=== PATIENT | male | born 1940 | race Caucasian/White ===

== ENCOUNTER 2018-08-26 13:14 | Inpatient (IN) | payer OTHER ==
[~2018-08-26] VITALS: Ht 185.4 cm; Wt 74.8 kg
[~2018-08-26 13:14] MED LIST: ACETAMINOPHEN650 M5 PO; ASPIRIN81 M2 PO; CARDIZEM CD120 MG PO; COUMADIN7.5 MG PO; DILTIAZEM 24HR120 M1 PO; FLECAINIDE ACET50 M1 PO; GLYCOLAX POWDER17 G1 PO; IRON325 PO; LORTAB 5 MG/5001 TAB PO; MOM PO; PACERONE 200 M200 M1 PO; PERCOCET 5-3251 EACH PO; PHISOHEX148 ML TP; PROVENTIL HFA6.7 G1 INH; SENOKOT-S1 TA1 PO; SPIRIVA INH; TAMSULOSIN HCL0.4 M1 PO; TOPROL XL25 MG PO; TOPROL XL50 MG PO; VICODIN 5-3001 EACH PO
[2018-08-26 16:03] VITALS: BP 108/77
[2018-08-26 17:38] LABS: INR 1.1; PROTIME 11.3 Seconds (9.3-11.4)
[2018-08-26 19:08] LABS: HEMATOCRIT 42.5 % (42.0-52.0); HEMOGLOBIN 14.5 gm/dL (14.0-18.0); MCH 30.4 pg (26.0-34.0); MCV 89.4 fL (80.0-100.0); PLATELET COUNT 122 thou/uL (150-400); RBC 4.75 mil/uL (4.50-6.00); RDW 13.9 % (10.5-14.5); WBC 4.6 thou/uL (4.0-11.0)
[2018-08-26 19:12] LABS: CALCIUM 8.3 mg/dL (8.5-10.1); CREATININE 1.1 mg/dL (0.7-1.3); POTASSIUM 4.2 mmol/L (3.5-5.1)
[2018-08-26 19:29] VITALS: BP 114/58
[2018-08-26 19:35] LABS: ABSOLUTE NEUTROPHILS 3.3 thou/uL (1.4-8.2); ANISOCYTOSIS 1+
[2018-08-26 19:36] LABS: LARGE PLATELETS OCCASIONAL
[2018-08-26 22:28] VITALS: BP 103/69
--- NOTE | 2018-08-26 22:31 | NUR ---
PATIENT ALERT AND ORIENTED AND PLEASANT. EMS TRANSPORT PATIENT FROM [facility] TO [facility] LATE AFTERNOON. 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 TROPONIN TRENDING DOWNWARD. ADMISSION ASSESSMENT PERFORMED AND PATIENT INSTRUCTED TO CALL BEFORE GETTING OUT OF BED.
[2018-08-27] VITALS (7 sets, daily range): BP systolic 97–114; BP diastolic 54–71
--- NOTE | 2018-08-27 03:43 | NUR ---
ASSUMED PT CARE AT ABOUT 1999. PT A/OX4, RESTING COMFIRTABLY IN BED. VITAL SIGNS STABLE EXCEPT FOR HR SUSTAINING IN THE 150'S TO 160'S. SIDE SPLITTER NOTIFIED, ORDERS RECIEVED. CARDIZEM DRIP WAS STARTED AT ABOUT 2200, WITH HR IN 150'S AND SUSTAINING. DRIP TITRATED DOWN, SEE DOCUMENETATION. CARDIZEM DRIP TITRATED DOWN TO 5MG/HR AT ABOUT 0130 WITH HR IN 70'S TO MID 60'S. NO COMPLAINTS OF CHEST PAIN. ASSESSMENT CHARTED. NO COMPLAINTS OF CHEST PAIN. PT RESTED WELL THROUGH THE NIGHT. HOURLY ROUNDING COMPLETED. PROGRESSING TOWARD PLAN OF CARE. WILL CONTINUE TO MONITOR.
[2018-08-27 04:02] LABS: PROTIME 10.8 Seconds (9.3-11.4)
[2018-08-27 04:05] LABS: ANION GAP 8 mmol/L (7-16); BUN 32 mg/dL (7-18); CHLORIDE 102 mmol/L (98-107); CHOLESTEROL 112 mg/dL (<200); CO2 27 mmol/L (21-32); GLUCOSE 90 mg/dL (74-106); HDL CHOLESTEROL 24 mg/dL (>40); LDL CHOLESTEROL 70 mg/dL (<100); MAGNESIUM 1.9 mg/dL (1.8-2.4); POTASSIUM 3.9 mmol/L (3.5-5.1); SODIUM 137 mmol/L (136-145); TC:HDL 4.7 Ratio (Not establshd); TRIGLYCERIDE 91 mg/dL (<150); VLDL 18 mg/dL (<40)
[2018-08-27 04:26] LABS: SERUM ASSESSMENT Clear
[2018-08-27 04:41] LABS: HEMATOCRIT 41.3 % (42.0-52.0); HEMOGLOBIN 14.2 gm/dL (14.0-18.0); MCH 30.8 pg (26.0-34.0); MCHC 34.5 g/dL (28.0-37.0); MCV 89.3 fL (80.0-100.0); PLATELET COUNT 113 thou/uL (150-400); RBC 4.62 mil/uL (4.50-6.00); WBC 4.7 thou/uL (4.0-11.0)
[2018-08-27 06:08] LABS: ABSOLUTE NEUTROPHILS 3.1 thou/uL (1.4-8.2)
[2018-08-27 06:10] LABS: ANISOCYTOSIS 1+; LARGE PLATELETS FEW; PLATELET ESTIMATE DECREASED; POLYCHROMASIA 1+
--- NOTE | 2018-08-27 09:32 | 2DMMODE ---
[facility] [place] [address] [place] [address] 2 D/M-MODE ECHOCARDIOGRAM Name: JOSE ALBERTO PARMAR Room #: 212-P ADM IN .R.#: [id number] ������������� Admission: 08/26/18 ������������� Attend Phys: Trung Gramajo MD Discharge: ��� ������������� ��� Date of : 36 Date of Service: 08/27/18 0932 �� Report #: [id number] �������� ��������������������������������������������[id number] THIS REPORT FOR: //name// APPROVED REPORT Study performed: 08/27/2018 08:30:14 EXAM: Comprehensive 2D, Doppler, and color-flow Echocardiogram Patient Location: Echo lab Room #: [facility] Status: routine BSA: 1.94 HR: 65 bpm BP: 97/58 mmHg Rhythm: NSR Other Information Study Quality: Adequate/Poor parasternal windows Technically limited study due to lung disease, body habitus. Indications SVT. Hx: AVR, HTN, PVD, COPD. 2D Dimensions RVDd: 38.09 mm IVSd: 10.23 (7-11mm) LVDd: 45.11 mm PWd: 10.54 (7-11mm) LVDs: 31.45 (25-40mm) Aortic Root: 30.50 mm Volumes Left Atrial Volume (Systole) Single Plane 4CH: 51.26 mL Single Plane 2CH: 58.14 mL LA ESV Index: 30.00 mL/m2 Aortic Valve AoV Peak Neymar.: 2.49 m/s AO Peak Gr.: 24.85 mmHg LVOT Max P.24 mmHg AO Mean Gr.: 12.73 mmHg AO V2 Mean: 1.68 m/s LVOT Max V: 1.03 m/s AO V2 VTI: 51.72 cm Mitral Valve [facility] [place] [place] [address] 2 D/M-MODE ECHOCARDIOGRAM Name: JOSE ALBERTO PARMAR Room #: 212-P [facility] IN [facility]#: [id number] ������������� Admission: 08/26/18 ������������� Attend Phys: Trung Gramajo MD Discharge: ��� ������������� ��� Date of : 36 Date of Service: 08/27/18 0932 �� Report #: [id number] �������� ��������������������������������������������[id number] MV Decel. Time: 689.14 ms MV PHT: 199.85 ms IVRT: 76.12 ms Pulmonary Valve PV Peak Neymar.: 1.13 m/s PV Peak Gr.: 5.17 mmHg Tricuspid Valve TR Peak Neymar.: 2.73 m/s RAP Estimate: 5.00 mmHg TR Peak Gr.: 29.88 mmHg Left Ventricle The left ventricle is normal size. There is normal LV segmental wall motion. There is normal left ventricular wall thickness. Left ventricular systolic function is normal. LVEF is 60%. This study is not technically sufficient to allow evaluation of the LV diastolic function. Right Ventricle The right ventricle is normal size. The right ventricular systolic function is normal. Atria The left atrium size is normal. The right atrium size is normal. 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 Peak pressure gradient of 25mmHg and a mean of 13mmHg. No aortic regurgitation is present. Mitral Valve Moderate mitral annular and subvalvular calcification. Mildly restricted mitral leaflet mobility Mild to moderate mitral regurgitation. Mild to moderate stenosis with a mean pressure gradient of 7mmHg. Tricuspid Valve The tricuspid valve is normal in structure. Trace to mild tricuspid regurgitation. Estimated PAP of 35mmHg. Pulmonic Valve Trace pulmonic regurgitation. Great Vessels The aortic root is normal in size. Ascending aorta is not well [facility] [address] [place] [address] 2 D/M-MODE ECHOCARDIOGRAM Name: JOSE ALBERTO PARMAR Room #: 212-P [facility] IN ..#: [id number] ������������� Admission: 08/26/18 ������������� Attend Phys: Trung Gramajo MD Discharge: ��� ������������� ��� Date of : 36 Date of Service: 08/27/18 0932 �� Report #: [id number] �������� ��������������������������������������������[id number] visualized. IVC is normal in size and collapses >50% with inspiration. Pericardium There is no pericardial effusion. <Conclusion> Left ventricular systolic function is normal. There is normal LV segmental wall motion. LVEF is 60%. A #25 bovine bioprosthetic aortic valve is present; not well visualized. Peak pressure gradient of 25mmHg and a mean of 13mmHg. No aortic regurgitation is present. Moderate mitral annular and subvalvular calcification. Mildly restricted mitral leaflet mobility Mild to moderate mitral regurgitation. Mild to moderate stenosis with a peak gradient of 17mmm, mean pressure gradient of 7mmHg. Trace to mild tricuspid regurgitation. Estimated PAP of 35mmHg. There is no pericardial effusion. ��������������������������������������������� <ELECTRONICALLY SIGNED> ���������������������������������������� By: Jacoby Kraus MD, [facility] ��������������������������������������������� 08/27/18931 1 1 Jacoby Kraus MD, [facility] /INF
--- NOTE | 2018-08-27 13:34 | NUR ---
CM ASSESSMENT: CASE OPENED FOR DC PLANNING. CLINICAL INFO REVIEWED. MET WITH PT WHO IS ALERT AND ORIENTED X4. PT ADMITTED WITH COPD EXACERBATION AND SVT. [place]OU[place], [place] THEY LIVE IN HOUSE, 2 STEPS TO ENTER AND 1 STEPS INSIDE. 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 HAS WALKER AT HOME BUT DOES NOT USE. NO PREVIOUS HOME HEALTH. PCP IS JOSE ALBERTO KHAN. PT IS UP IN ROOM WITH SUPERVISION. HE INDICATES GOAL TO RETURN HOME AT DISCHARGE.
--- NOTE | 2018-08-27 17:52 | EKG ---
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 : 1940 Requested By: Dayanara Duggan Order Number: [id number] MD: Jacoby Kraus Measurements Intervals [place] Rate: 74 P: 72 [place]: 177 QRS: -11 QRSD: 81 T: 69 QT: 385 QTc: 428 Interpretive Statements Sinus rhythm Atrial premature complex ST elevation suggests early repolarization Baseline wander in lead(s) II,III,aVF Compared to ECG 05/12/2017 13:35:19 Atrial premature complex(es) now present Electronically Signed On 08-27-2018 17:52:38 CDT by Jacoby Kraus [email or web address] ��������������������������������������������� <ELECTRONICALLY SIGNED> ���������������������������������������� By: Jacoby Kraus MD, [facility] ��������������������������������������������� 08/27/18 1752 1631 1631 Jacoby Kraus MD, [facility] /EPI
--- NOTE | 2018-08-27 18:00 | EKG ---
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 : 1940 Requested By: Tash Salazar Order Number: [id number] MD: Jacoby Kraus Measurements Intervals [place] Rate: 66 P: 54 [place]: 178 QRS: -29 QRSD: 94 T: 72 QT: 420 QTc: 441 Interpretive Statements Sinus rhythm Borderline left axis deviation Repolarization abnormality Compared to ECG 05/12/2017 13:35:19 No significant change was found Electronically Signed On 08-27-2018 18:00:17 CDT by Jacoby Kraus [email or web address] ��������������������������������������������� <ELECTRONICALLY SIGNED> ���������������������������������������� By: Jacoby Kraus MD, [facility] ��������������������������������������������� 08/27/18 1800 3 Jacoby Kraus MD, [facility] /EPI
--- NOTE | 2018-08-27 19:26 | NUR ---
ASSUMED CARE OF PATIENT AT 0700. PATIENT IS A&O X 4. PATIENT D/C FROM [facility] AT 1030. PATIENT HAD 30 MINUTE EPISODE OF HR IN 120'S WHICH CORRECTED ITSELF TO THE 70'S. PATIENT UNDERWENT AN ECHO TODAY WITHOUT ANY DIFFICULTY. PATIENT RESTED IN BED WITH HIS CALL LIGHT IN HIS LAP. HE DENIED ANY PAIN. PATIENT TO CONTINUE WITH POC.
[2018-08-28 05:17] VITALS: BP 105/72
--- NOTE | 2018-08-28 07:38 | NUR ---
ASSESSEMENTS CHARTED. PATIENT'S HEART RATE INCREASED INTO THE 120'S AND MAINTAINED. RESTARTED DILTIAZEM AND TITRATED TO LOWER HEART RATE. NEW IV IN RIGHT FOREARM 22 GA. DENIED PAIN AND CHEST PRESSURE. PLAN OF CARE IS TO CONTROL HEART RATE.
[2018-08-28 09:13] VITALS: BP 115/61
[2018-08-28 10:00] LABS: HEMATOCRIT 39.8 % (42.0-52.0); HEMOGLOBIN 13.6 gm/dL (14.0-18.0); MCH 30.1 pg (26.0-34.0); MCHC 34.3 g/dL (28.0-37.0); RBC 4.52 mil/uL (4.50-6.00); RDW 13.4 % (10.5-14.5); WBC 3.6 thou/uL (4.0-11.0)
[2018-08-28 10:08] LABS: CALCIUM 8.4 mg/dL (8.5-10.1); CREATININE 0.8 mg/dL (0.7-1.3); MAGNESIUM 1.7 mg/dL (1.8-2.4); POTASSIUM 4.2 mmol/L (3.5-5.1)
[2018-08-28 12:48] VITALS: BP 101/67
[2018-08-28 17:32] VITALS: BP 112/68
--- NOTE | 2018-08-28 17:56 | NUR ---
ASSESSMENT DOCUMENTED. PT ALERT AND ORIENTED. DENIED HAVING PAIN OR DISCOMFORT. SEEN BY DR. JACKSON. NEW ORDERS NOTED. ST TO SR ON TELI. RT TREATMENT GIVEN ORDERED. NO CONCERNS AT THIS TIME. WILL CONTINUE TO MONITOR.
--- NOTE | 2018-08-28 18:43 | NUR ---
CARDIZEM DRIP STOPPED AT 1630. PT'S HR SUSTAINING 60- 70'S.
[2018-08-28 19:50] VITALS: BP 124/78
--- NOTE | 2018-08-29 03:40 | NUR ---
ASSESSMENTS CHARTED. PATIENT'S HEART RATE HAS STAYED STEADY IN THE 70'S DURING SHIFT. PATIENT'S CARDIZEM WAS INCREASED TODAY. PLAN IS TO WEAN PATIENT OFF O2 HE DOES NOT USE OXYGEN AT HOME PRIOR TO ADMIT OR DO ACTIVITY OXYGEN TEST TO QUALIFY FOR HOME OXYGEN.
[2018-08-29 04:11] VITALS: BP 118/59
[2018-08-29 09:09] VITALS: BP 107/63
[2018-08-29 12:00] VITALS: BP 114/65
[2018-08-29 13:38] LABS: URINE BILIRUBIN NEGATIVE (Negative); URINE BLOOD NEGATIVE (Negative); URINE CLARITY CLEAR; URINE COLOR YELLOW; URINE GLUCOSE-RANDOM* NEGATIVE (Negative); URINE KETONES NEGATIVE (Negative); URINE LEUKOCYTES-REFLEX NEGATIVE (Negative); URINE NITRITE-REFLEX NEGATIVE (Negative); URINE PROTEIN (DIPSTICK) NEGATIVE (Negative); URINE SPECIFIC GRAVITY 1.015 (1.005-1.035); URINE UROBILINOGEN 0.2 E.U./dl (0.2-1.0)
[2018-08-29 14:31] VITALS: BP 134/69
--- NOTE | 2018-08-29 18:42 | NUR ---
ASSUMED CARE OF PATIENT AT 0700. PATIENT IS A&O X 4. ASSESSMENTS CHARTED. PATIENT AMBULATED THE UNIT WITHOUT OXYGEN AND MAINTAINED O2 SAT GREATER THAN 95%. PATIENT SAT UP IN THE CHAIR FOR THE MAJORITY OF THE DAY WITH MULTIPLE FAMILY MEMBERS AT THE BEDSIDE. PATIENT IS ANXIOUS TO GO HOME TOMORROW. CONTINUE WITH POC.
[2018-08-29 20:34] VITALS: BP 126/68
[2018-08-30 04:23] VITALS: BP 116/63
--- NOTE | 2018-08-30 06:10 | NUR ---
ASSUME CARE 1900. PT/VITALS STABLE. DENEIS ANY PAIN. TOLERATES ACTIVITY WELL. ADEQUATE REST NOTED THROUGH THE NIGHT. SR/1D ON MONITOR. LOOSE COUGH NOTED. NO SPUTUM OBSERVED. ASSESSMENT AAS CHARTED. PROGRESSING WELL WITH POC. PLAN IS POSSIBLE DISCHARGE HOME TODAY. WILL CONTINUE TO MONITOR AND FOLLOW WITH POC
[2018-08-30 08:26] VITALS: BP 125/68
[2018-08-30] MEDS ORDERED: CARDIZEM CD 30300 M1 PO (11:19)
[2018-08-30] MEDS ORDERED: FLECAINIDE ACET50 M2 PO (11:19)
[2018-08-30] MEDS ORDERED: PULMICORT0.5 MG/21 INH (11:20)
[2018-08-30] MEDS ORDERED: MUCINEX600 MG PO (11:21)
[2018-08-30] MEDS ORDERED: CEFUROXIME500 MG PO (11:22)
[2018-08-30 12:34] VITALS: BP 113/66
[2018-08-30 13:17] VITALS: BP 113/66
--- NOTE | 2018-08-30 16:59 | NUR ---
ASSUMED CARE OF PATIENT AT 0700. PATIENT IS A&O X 4. ASSESSMENTS CHARTED. NO CHEST PAIN. PATIENT IS AMBULATING IN THE ROOM FARZAD AND STEADY. PATIENT STATES THAT HE FEELS BETTER THAN HE DID WHEN HE ARRIVED. PATIENT'S DAUGHTERS ARRIVED TO PICK HIM UP AND DRIVE HIM HOME. PRESCRIPTIONS FAXED TO [facility] IN [place], [place]. IV AND TELE D/C. PATIENT STATES THAT HE HAS ALL OF HIS BELONGINGS.
[2018-08-31 09:07] LABS: ADENOVIRUS Negative (Negative); INFLUENZA A Positive (Negative); INFLUENZA B Negative (Negative); METAPNEUMOVIRUS Negative (Negative); PARAINFLUENZA 1 Negative (Negative); PARAINFLUENZA 2 Negative (Negative); PARAINFLUENZA 3 Negative (Negative); RHINOVIRUS Negative (Negative); RSV A Negative (Negative); RSV B Negative (Negative)
== END 2018-08-30 14:59 | disposition home or self-care (01) | DRG 189 ==
LOC: 2N 13:14
PROVIDERS: Internal Medicine; Nurse Practitioner; Pediatrics; ADMIT Internal Medicine
DX: J96.01 Acute respiratory failure with hypoxia (principal); I47.1 Supraventricular tachycardia; J44.1 Chronic obstructive pulmonary disease with (acute) exacerbation; Z66 Do not resuscitate; I10 Essential (primary) hypertension; I73.9 Peripheral vascular disease, unspecified; N40.0 Benign prostatic hyperplasia without lower urinary tract symptoms; J06.9 Acute upper respiratory infection, unspecified; E83.42 Hypomagnesemia; I08.1 Rheumatic disorders of both mitral and tricuspid valves; R79.89 Other specified abnormal findings of blood chemistry; E78.5 Hyperlipidemia, unspecified; Z90.49 Acquired absence of other specified parts of digestive tract; Z95.820 Peripheral vascular angioplasty status with implants and grafts; Z87.891 Personal history of nicotine dependence; Z95.2 Presence of prosthetic heart valve; Z79.899 Other long term (current) drug therapy; Z88.7 Allergy status to serum and vaccine; Z88.8 Allergy status to other drugs, medicaments and biological substances; Z82.49 Family history of ischemic heart disease and other diseases of the circulatory system; Z80.8 Family history of malignant neoplasm of other organs or systems
CPT/HCPCS: 10081; 10797